=== PATIENT | female | born 1965 | race Hispanic/Latino ===

== ENCOUNTER → 2017-05-20 | Outpatient (CLI) | payer BC ==
--- NOTE | 2017-05-30 10:25 | Diagnostic Imaging Report ---
#[id number] - MGSCRN[facility] #BILATERAL DIGITAL SCREENING MAMMOGRAM WITH CAD: 05/20/2017 CLINICAL: Routine screening. Comparison is made to exams dated: 04/19/2016 mammogram, 03/12/2015 mammogram and 11/22/2013 mammogram - [facility]. Current study contains 4 films. The tissue of both breasts is heterogeneously dense. This may lower the sensitivity of mammography. Current study was also evaluated with a Computer Aided Detection (CAD) system. There are benign calcifications in both breasts. Benign appearing axillary nodes are stable. No significant masses, calcifications, or other findings are seen in either breast. There has been no significant interval change. IMPRESSION: BENIGN There is no mammographic evidence of malignancy. A 1 year screening mammogram is recommended. The patient will be notified by letter of the results. Barrett Butterfield Jr., D.O. cw/:05/27/2017 12:15:50 Rn Vascular: Nitza TAYLOR(R)(M), [facility] letter sent: Compared to Prior B9 Mammogram BI-RADS: 2 Benign
== END ==
LOC: MAMMO 08:40
PROVIDERS: ATTEND Obstetrics & Gynecology
DX: Z12.31 Encounter for screening mammogram for malignant neoplasm of breast (principal)

== ENCOUNTER → 2018-08-09 | Outpatient (CLI) | payer BC ==
--- NOTE | 2018-08-10 08:46 | Diagnostic Imaging Report ---
#[id number] - USBRECOMLT ULTRASOUND OF THE LEFT BREAST : 08/09/2018 No prior exams were available for comparison. Color flow and real-time ultrasound were performed on the entire left breast with scanning in all four quadrants, retroareolar region and the left axilla. -There is a benign cyst measuring 4 x 4 x 4 mm at 12 o'clock 2 cm from the nipple. IMPRESSION: BENIGN There is no sonographic evidence of malignancy. A 1 year screening mammogram is recommended. Barrett Butterfield Jr., D.O. cw/:08/09/2018 18:02:03 Oven Technician: ALVARO MAST RDMS, [facility] letter sent: Normal Exam Ultrasound BI-RADS: 2 Benign
--- NOTE | 2018-08-10 08:46 | Diagnostic Imaging Report ---
#[id number] - USBRECOMRT ULTRASOUND OF THE RIGHT BREAST : 08/09/2018 Comparison is made to exam dated: 07/05/2018 mammogram - [facility]. Color flow and Doppler ultrasound were performed on the entire right breast with scanning in all four quadrants, retroareolar region and the right axilla. -There is a benign cyst measuring 5 x 3 x 5 mm at 6 o'clock 1 cm from the nipple. IMPRESSION: BENIGN There is no sonographic evidence of malignancy. A 1 year screening mammogram is recommended. Barrett Butterfield Jr., D.O. cw/:08/09/2018 17:59:56 [place] Machine Operator: ALVARO MAST RDMS, [facility] letter sent: Normal Exam Ultrasound BI-RADS: 2 Benign
== END ==
LOC: US 14:14
PROVIDERS: ATTEND Obstetrics & Gynecology
DX: R92.2 Inconclusive mammogram (principal)

== ENCOUNTER → 2019-05-17 | Outpatient (CLI) | payer BC | LOC: MAMMO 14:39 | PROVIDERS: ATTEND Obstetrics & Gynecology | DX: Z12.31 Encounter for screening mammogram for malignant neoplasm of breast (principal) | CPT/HCPCS: 77067 ==

== ENCOUNTER → 2019-10-11 | Outpatient (CLI) | payer BC ==
--- NOTE | 2019-10-11 16:04 | Diagnostic Imaging Report ---
EXAM: CHEST 2 VIEWS DATE: 10/11/2019 3:20 PM INDICATION: Bronchitis COMPARISON: None FINDINGS: The trachea is midline. The lungs are symmetrically expanded without evidence for large focal consolidation, pneumothorax, or significant pleural effusion. The cardiomediastinal silhouette and pulmonary vasculature are within normal limits. No acute osseous abnormality is identified. The surrounding soft tissues are unremarkable. IMPRESSION: No acute cardiopulmonary process identified. Signed by: Dr. Denver Pfeiffer MD on 10/11/2019 4:01 PM
== END ==
LOC: RAD 15:22
PROVIDERS: ATTEND Family Medicine
DX: J40 Bronchitis, not specified as acute or chronic (principal)
CPT/HCPCS: 71046

== ENCOUNTER → 2020-04-10 | Outpatient (CLI) | payer BC | LOC: MAMMO 08:40 | PROVIDERS: ATTEND Obstetrics & Gynecology | DX: N64.4 Mastodynia (principal) ==

== ENCOUNTER → 2020-10-29 | Outpatient (CLI) | payer BC | LOC: DX 08:52 | PROVIDERS: ATTEND Obstetrics & Gynecology | DX: Z12.31 Encounter for screening mammogram for malignant neoplasm of breast (principal); Z13.820 Encounter for screening for osteoporosis | CPT/HCPCS: 77067; 77080 ==

== ENCOUNTER → 2021-10-21 | Outpatient (CLI) | payer BC | LOC: MAMMO 11:16 | PROVIDERS: ATTEND Obstetrics & Gynecology | DX: Z12.31 Encounter for screening mammogram for malignant neoplasm of breast (principal) | CPT/HCPCS: 77067 ==

== ENCOUNTER → 2021-12-09 | Outpatient (CLI) | payer BC | LOC: RAD 14:27 | PROVIDERS: ATTEND Family Medicine | DX: J18.0 Bronchopneumonia, unspecified organism (principal) | CPT/HCPCS: 71046 ==

== ENCOUNTER → 2022-07-29 | Outpatient (CLI) | payer BC | LOC: MAMMO 08:36 | PROVIDERS: ATTEND Obstetrics & Gynecology | DX: N64.4 Mastodynia (principal) ==

== ENCOUNTER → 2024-01-30 | Outpatient (REF) | payer BC | LOC: MAMMO 08:31 | PROVIDERS: ATTEND Obstetrics & Gynecology | DX: Z12.31 Encounter for screening mammogram for malignant neoplasm of breast (principal) | CPT/HCPCS: 77067 ==

== ENCOUNTER → 2024-02-08 | Outpatient (REF) | payer BC | LOC: US 07:51 | PROVIDERS: ATTEND Obstetrics & Gynecology | DX: R92.30 Dense breasts, unspecified (principal) ==

== ENCOUNTER 2024-07-15 11:16 | Emergency (ER) | payer BC ==
[~2024-07-15] VITALS: Ht 154.9 cm; Wt 79.4 kg
[2024-07-15 11:24] VITALS: TEMP 98.1
[2024-07-15] MEDS ORDERED: Morphine 2mg Syringe 2 MG/ML SYR ONE (12:00)
[2024-07-15] MEDS ORDERED: SODIUM CHLORIDE 0.9% 1000ML 1,000 ML ONE (12:05)
[2024-07-15] MEDS: ONDANSETRON HCL INJ 2MG/ML 2ML 2 MG/ML VIAL IV STA (12:11)
[2024-07-15] MEDS: Morphine 4mg INJECTION 4 MG/ML INJ IV ONE (12:12)
[2024-07-15 13:35] VITALS: BP 171/95; PULSE 107; RESP 26; TEMP 98.1
[2024-07-15] MEDS: PROPOFOL IV EMULSION 10 MG/ML 20 ML VIAL IV ONE ×2 (14:14→14:34)
[2024-07-15] MEDS ORDERED: ULTRAM 50MG50 MG PO (14:56)
[2024-07-15 15:04] VITALS: PULSE 90; RESP 16; O2SAT 97
== END 2024-07-15 15:50 | disposition home or self-care (01) ==
LOC: ER 11:26
DX: M25.512 Pain in left shoulder (principal); S43.085A Other dislocation of left shoulder joint, initial encounter; W18.39XA Other fall on same level, initial encounter; Y93.01 Activity, walking, marching and hiking; Y92.89 Other specified places as the place of occurrence of the external cause
CPT/HCPCS: 23655; 73030; 73060; 99285; J2270; J2405; J2704; J7030